=== PATIENT | female | born 1985 | race Caucasian/White ===

== ENCOUNTER 2018-01-07 12:36 | Outpatient (CLI) | payer BC | END 2018-01-07 12:37 | disposition home or self-care (01) | LOC: ULT 12:36 | PROVIDERS: ATTEND Family Medicine | DX: I34.1 Nonrheumatic mitral (valve) prolapse (principal); I37.1 Nonrheumatic pulmonary valve insufficiency; I07.1 Rheumatic tricuspid insufficiency | CPT/HCPCS: 93306 ==

== ENCOUNTER 2019-10-10 08:18 | Outpatient (CLI) | payer BC ==
--- NOTE | 2019-10-10 09:22 | ULT ---
SONOGRAM LEFT BREAST: HISTORY: Left breast pain. FINDINGS: Heterogeneously dense fibroglandular tissue. Sonographic evaluation of the lateral and superolateral aspect of the left breast shows no solid or cystic masses. No suspicious shadowing. Normal-appeari ng axillary lymph nodes are partially visualized deep within the axilla. IMPRESSION: No mass or abnormal findings demonstrated sonographically. BIRADS category 2. Benign findings. Sug gest routine mammographic followup. POS: CHRIS
--- NOTE | 2019-10-11 10:12 | MMO ---
Bilateral MAMMO Bilat Diag [facility]. CLINICAL HISTORY: Patient is 34 years old and is seen for diagnostic exam and pain in the left breast. The patient has the following family history of breast cancer: paternal grandmother, UTERINE AND OVARIAN CA and maternal grandmother. The patient has no personal history of cancer. VIEWS: The views performed were: bilateral craniocaudal with tomosynthesis; bilateral mediolateral oblique with tomosynthesis; bilateral mediolateral with tomosynthesis; and bilateral exaggerated craniocaudal. FILMS COMPARED: The present examination has been compared to a prior imaging study performed at [facility] on 05/17/2017. This study has been interpreted with the assistance of computer-aided detection. MAMMOGRAM FINDINGS: The breasts are heterogeneously dense, which could obscure a lesion on mammography. There are stable benign appearing calcifications seen in both breasts. There are no suspicious masses, suspicious calcifications, or new areas of architectural distortion. IMPRESSION: THERE IS NO MAMMOGRAPHIC EVIDENCE OF MALIGNANCY. A ROUTINE FOLLOW-UP MAMMOGRAM AT AGE 39 IS RECOMMENDED. THE RESULTS OF THIS EXAM WERE SENT TO THE PATIENT. ACR BI-RADS Category 2 - Benign finding MAMMOGRAPHY NOTE: 1. A negative mammogram report should not delay a biopsy if a dominant of clinically suspicious mass is present. 2. Approximately 10% to 15% of breast cancers are not detected by mammography. 3. Adenosis and dense breasts may obscure an underlying neoplasm. Reported by: LYNN WEBB MD Electonically Signed: [id number]
== END 2019-10-10 08:19 | disposition home or self-care (01) ==
LOC: BICMAMMO 08:18
PROVIDERS: ATTEND Family Medicine
DX: N64.4 Mastodynia (principal)
CPT/HCPCS: 77066; G0279

== ENCOUNTER 2019-10-17 07:05 | Day surgery (SDC) | payer BC ==
[2019-10-16 08:32] VITALS: BMI 30.2
[2019-10-17] MEDS ORDERED: Indomethacin 50 MG SUPP ONE (09:15)
[2019-10-17] MEDS ORDERED: Iothalamate Meglumine 60% 50 ML VIAL FS ONE (09:15)
[2019-10-17] MEDS ORDERED: Fentanyl 100 MCG/2 ML VIAL ONE (09:26)
[2019-10-17] MEDS ORDERED: Levofloxacin 500 mg/D5W 100 ml Premix Bag ONE (09:34)
[2019-10-17] MEDS ORDERED: SUGAMMADEX SODIUM 500 MG/5 ML VIAL ONE (09:43)
[2019-10-17] MEDS ORDERED: Midazolam HCl 2 mg/2 ml Vial ONE (09:47)
--- NOTE | 2019-10-17 10:54 | RAD ---
EXAM: ERCP HISTORY: Right upper quadrant abdominal pain COMPARISON: None FINDINGS: Limited intraoperative fluoroscopic views were taken during a an ERCP. The common bile duct is normal in caliber without filling defect. No leakage from the common bile duct. No abnormality of the intrahepatic bile ducts. IMPRESSION: Unremarkable ERCP
[2019-10-17] MEDS ORDERED: Morphine 2 MG/ML SYRINGE ONE (11:53)
[2019-10-17] MEDS ORDERED: PROPOFOL 200 MG/20 ML VIAL ONE (12:02)
[2019-10-17] MEDS ORDERED: diphenhydrAMINE 50 MG/ML VIAL ONE (12:02)
[2019-10-17] MEDS ORDERED: Rocuronium Bromide 10 MG/ML (10ML VIAL) ONE (12:02)
[2019-10-17] MEDS ORDERED: Lidocaine 1% PF 5 ML VIAL ONE (12:02)
[2019-10-17] MEDS ORDERED: Ondansetron PF 4 MG/2 ML Vial ONE (12:02)
[2019-10-17] MEDS ORDERED: Dexamethasone 20 MG/5 ML VIAL ONE (12:02)
[2019-10-17] MEDS ORDERED: Ketorolac Tromethamine 30 MG/ML VIAL ONE (12:02)
[2019-10-17] MEDS ORDERED: PHENYLEPHRINE-NS 100 MCG/ML 10 ML SYRINGE ONE (12:02)
--- NOTE | 2019-10-17 14:37 | OP ---
DATE OF PROCEDURE: 10/17/2019 PROCEDURES PERFORMED: Endoscopic retrograde cholangiopancreatography, sphincterotomy, removal of biliary debris. PREPROCEDURE DIAGNOSES: 1. Status post laparoscopic cholecystectomy. 2. Recurrent bouts of right upper quadrant abdominal pain radiating to the back and shoulder consistent with her previous biliary colic. 3. Presentation at outside emergency room a few weeks ago with that pain, elevated liver enzymes, and nondiagnostic CT, and ultrasound reported 4 mm common bile duct. POSTPROCEDURE DIAGNOSES: 1. Normal-appearing ampulla. 2. Normal stomach and duodenum. 3. Small amount of biliary debris at the ampulla. 4. Ampullary stenosis. 5. 8 mm common bile duct with no filling defects. 6. Sphincterotomy was performed, and duct was swept x3 with occlusion cholangiogram revealing no residual filling defects at the termination of procedure. I suspect she had biliary sludge, and actually, there was evidence of this at the ampulla when we were performing our endoscopic retrograde cholangiopancreatography. She may also have a component of ampullary stenosis. ANESTHESIA: General endotracheal anesthesia with Indocin given for pancreatitis prophylaxis and hydration given. RECOMMENDATIONS: 1. Monitor for 4 hours postprocedure for signs of post endoscopic retrograde cholangiopancreatography pancreatitis. 2. Follow up in the office in 2 weeks with repeat LFTs. DESCRIPTION OF PROCEDURE: After the patient was informed of the risks, benefits, and possible complications of endoscopy including perforation, bleeding, reaction to medication, and aspiration, informed consent was obtained. The risk of pancreatitis was discussed with the patient. The option of proceeding with other endoscopic procedure such as an EUS to further delineate the bile duct and see if there are residual stones present was discussed with her. In light of her ongoing pain and liver test abnormalities, the ERCP was set up. On the day of the procedure, she was brought to endoscopy suite after consents were obtained. She was intubated and then placed on the fluoroscopy table in a prone position. Screen Examiner films were obtained. The side-viewing duodenoscope was advanced to the esophagus, stomach, and second and third portions of the duodenum. The ampulla was brought into view and appeared normal. The bile was emanating from it. There was a small amount of debris at the bile duct consistent with sludge or at most bile sand that possibly passed. Attempted cannulation was not successful at first. We did not inject it, placed a slight wire, which went into pancreatic duct. The catheter was removed. The wire was left in place, and a second wire was used to guide the papillotome, and this was directed into the common bile duct. Cholangiogram showed an 8 mm common bile duct, definitely dilated versus report of her ultrasound and previous CT. No overt filling defects were seen. A sphincterotomy was performed over the guidewire. There did appear to be some ampullary stenosis and was difficult to get the cannula into the bile duct sphincter. The sphincterotomy was performed. The duct was then swept with a 12 mm balloon x3. The duct seemed to measure 12 mm, and this balloon was able to come out through the ampulla fully inflated. Occlusion cholangiogram showed no further filling defects. The scope was removed. The patient tolerated the procedure well. No complications. She was brought to recovery room in stable condition. Job ID: [id number]
== END 2019-10-17 15:45 | disposition home or self-care (01) ==
LOC: SDC 07:05
PROVIDERS: ATTEND Internal Medicine Gastroenterology
PROC: 0FC98ZZ Extirpation of Matter from Common Bile Duct, Via Natural or Artificial Opening Endoscopic (ICD-10-PCS; principal; 2019-10-17)
DX: K83.1 Obstruction of bile duct (principal); K21.9 Gastro-esophageal reflux disease without esophagitis; F41.9 Anxiety disorder, unspecified; F32.9 Major depressive disorder, single episode, unspecified; Z79.899 Other long term (current) drug therapy
CPT/HCPCS: 74330; C1769; J1100; J1200; J1610; J1885; J1956; J2001; J2250; J2270; J2405; J2704; J3010

== ENCOUNTER 2023-04-19 09:35 | Outpatient (CLI) | payer BC | END 2023-04-19 09:36 | disposition home or self-care (01) | LOC: SCSRAD 09:35 | PROVIDERS: ATTEND Nurse Practitioner Family | DX: U07.1 COVID-19 (principal); R07.89 Other chest pain; R06.09 Other forms of dyspnea | CPT/HCPCS: 71046 ==

== ENCOUNTER 2024-03-11 14:25 | Outpatient (CLI) | payer BC | END 2024-03-11 14:26 | disposition home or self-care (01) | LOC: SCSRAD 14:25 | PROVIDERS: ATTEND Physician Assistant | DX: S99.922A Unspecified injury of left foot, initial encounter (principal); M79.89 Other specified soft tissue disorders ==